=== PATIENT | male | born 1995 | race Two or more races ===

== ENCOUNTER 2022-04-14 21:40 | Emergency (ER) | payer OTHER ==
[~2022-04-14] VITALS: Ht 177.8 cm; Wt 104.3 kg
[2022-04-15] MEDS ORDERED: BUDEO.25 IH (05:03)
[2022-04-15] MEDS ORDERED: SYMBICORT 16010.2 GM IH (05:03)
[2022-04-15] MEDS ORDERED: ZYNCOF 20-400120 ML PO (05:03)
[2022-04-15] MEDS ORDERED: ALBUTEROL2.5 MG/3 M IH (05:03)
[2022-04-15] MEDS ORDERED: SINGULAIR10 MG PO (05:04)
== END 2022-04-15 05:17 ==
LOC: ER 21:40
DX: J40 Bronchitis, not specified as acute or chronic (principal); R53.83 Other fatigue; R05.9 Cough, unspecified

== ENCOUNTER 2022-08-21 07:05 | Emergency (ER) | payer OTHER ==
[~2022-08-21] VITALS: Ht 172.7 cm; Wt 108.9 kg
[~2022-08-21 07:05] MED LIST: ALBUTEROL2.5 MG/3 M IH; BUDEO.25 IH; SINGULAIR10 MG PO; SYMBICORT 16010.2 GM IH; ZYNCOF 20-400120 ML PO
== END 2022-08-21 10:19 | disposition home or self-care (01) ==
LOC: ER 07:05
DX: R51.9 Headache, unspecified (principal); Z20.822 Contact with and (suspected) exposure to COVID-19

== ENCOUNTER 2022-09-25 17:22 | Emergency (ER) | payer OTHER ==
[~2022-09-25] VITALS: Ht 172.7 cm; Wt 104.3 kg
== END 2022-09-25 22:11 | disposition home or self-care (01) ==
LOC: ER 17:22
DX: S00.93XA Contusion of unspecified part of head, initial encounter (principal); V49.9XXA Car occupant (driver) (passenger) injured in unspecified traffic accident, initial encounter; Y93.89 Activity, other specified; Y92.413 State road as the place of occurrence of the external cause; Y99.9 Unspecified external cause status